=== PATIENT | female | born 1955 | race Native Hawaiian/Other Pacific Islander ===

== ENCOUNTER 2016-05-24 10:01 | Outpatient (CLI) | payer OTHER, BC ==
[~2016-05-24 10:01] MED LIST: CARV3.12 PO; FERROUS SULF325 M1 OR; GABA300C2 PO; METF500T PO; SERT50TA PO; TIKOSYN500 MCG OR; WARF5TAB6 PO
== END 2016-05-24 21:27 | disposition home or self-care (01) ==
LOC: MAMMO 10:01
DX: Z12.31 Encounter for screening mammogram for malignant neoplasm of breast (principal)
CPT/HCPCS: G0202-TC

== ENCOUNTER 2018-01-30 10:55 | Outpatient (CLI) | payer BC | END 2018-01-30 22:09 | disposition home or self-care (01) | LOC: MAMMO 10:55 | DX: Z12.31 Encounter for screening mammogram for malignant neoplasm of breast (principal); Z78.0 Asymptomatic menopausal state ==